=== PATIENT | male | born 1990 | race Caucasian/White ===

== ENCOUNTER 2017-09-22 23:04 | Emergency (ER) | payer OTHER ==
[2017-09-22 23:46] VITALS: BP 131/71
[2017-09-23] MEDS ORDERED: CYCLOBENZAPRINE HCL 10 MG TABLET PO ONE (00:30)
--- NOTE | 2017-09-23 00:32 | ER Document Report ---
ED General - General Mode of Arrival: Ambulatory Information source: Patient TRAVEL OUTSIDE OF THE [place] IN LAST 30 DAYS: No - General Chief Complaint: Bilat hip and back pain Stated Complaint: BACK/HIP PAIN Time Seen by Provider: 09/23/17 00:08 Notes: Patient is a 26 year old male with a history of degenerative disks presents to the emergency department complaining of bilateral hip and back pain secondary to a fall onset 2 weeks ago. Patient states that he slipped on water on a hard floor and fell on his bottom. Patient describes his hip pain as someone crushing them. Patient also complains of bilateral leg tingly sensations. Patient states that his hips were also swollen. Patient states that his pain is exacerbated by all kinds of movement. Patient states the pain worsened over time Patient states he was seen at [facility] 2 days ago for the same symptoms. (KEENAN MANSFIELD) States x-rays at [facility] 2 days ago were negative. Denies any bowel or bladder dysfunction, states that the tingling sensation is tingling that starts at his hips goes all the way down his legs and then goes away over a few minutes. Denies any foot drop. (CEASAR WALTON) Past Medical History - General Information source: Patient - Social History Smoking Status: Never Smoker Cigarette use (# per day): No Chew tobacco use (# tins/day): No Smoking Education Provided: No Frequency of alcohol use: None Drug Abuse: None Family History: Reviewed & Not Pertinent Review of Systems - Review of Systems Constitutional: No symptoms reported EENT: No symptoms reported Cardiovascular: No symptoms reported Respiratory: No symptoms reported Gastrointestinal: No symptoms reported Genitourinary: No symptoms reported Male Genitourinary: No symptoms reported Musculoskeletal: See HPI, Back pain Skin: No symptoms reported Hematologic/Lymphatic: No symptoms reported Neurological/Psychological: No symptoms reported -: Yes All other systems reviewed and negative Physical Exam - Vital signs Vitals: Temp Pulse Resp BP Pulse Ox 98.8 F 86 16 131/71 H 98 09/22/17 23:38 09/22/17 23:38 09/22/17 23:38 09/22/17 23:38 09/22/17 23:38 - Notes Notes: GENERAL: Alert, interacts well. No acute distress. HEAD: Normocephalic, atraumatic. EYES: Pupils equal, round, and reactive to light. Extraocular movements intact. ENT: Oral mucosa moist, tongue midline. NECK: Full range of motion. Supple. Trachea midline. LUNGS: Clear to auscultation bilaterally, no wheezes, rales, or rhonchi. No respiratory distress. HEART: Regular rate and rhythm. No murmurs, gallops, or rubs. ABDOMEN: Soft, non-tender. Non-distended. Bowel sounds present in all 4 quadrants. EXTREMITIES: Lumbar sacral joint tender to palpation. Moves all 4 extremities spontaneously. No edema, radial and dorsalis pedis pulses 2/4 bilaterally. No cyanosis. NEUROLOGICAL: Alert and oriented x3. Normal speech. Biceps and patellar DTRs 2+ bilaterally. PSYCH: Normal affect, normal mood. SKIN: Warm, dry, normal turgor. No rashes or lesions noted. (KEENAN MANSFIELD) Great toe raising strength bilaterally 5 out of 5. No saddle anesthesia. Able to stand and walk without difficulty. 5 out of 5 muscle strength in the bilateral lower extremities. Sensation intact bilateral lower extremities. ( CEASAR WALTON) Course - Re-evaluation Re-evalutation: 09/23/17 00:32 Normal neurologic exam, no evidence of cauda equina syndrome, able to stand without difficulty, sensation intact, consistent with sacral shear, recommended follow-up with chiropractics. Discharged home with Flexeril. (CEASAR WALTON) - Vital Signs Vital signs: Temp Pulse Resp BP Pulse Ox 98.8 F 86 16 131/71 H 98 09/22/17 23:38 09/22/17 23:38 09/22/17 23:38 09/22/17 23:38 09/22/17 23:38 Discharge - Discharge Clinical Impression: Sacral back pain, Sacroiliac joint dysfunction of left side, Pre-hypertension Condition: Stable Disposition: HOME, SELF-CARE Instructions: Stretching Exercises for the Back ([facility]) Prescriptions: Cyclobenzaprine HCl [Flexeril 10 mg Tablet] 10 mg PO TIDP PRN #15 tab PRN Reason: Forms: Elevated Blood Pressure Referrals: VIRGILIO FRYE MD [ACTIVE STAFF] - Follow up in 1 week Scribe Attestation: 09/23/17 01:24 I personally performed the services described in the documentation, reviewed and edited the documentation which was dictated to the scribe in my presence, and it accurately records my words and actions. (CEASAR WALTON) Scribe Documentation - Scribe Written by Darrion:: Darrion Oreilly, 09/23/2017 00:46 acting as scribe for :: Pennie
== END 2017-09-23 00:55 | disposition home or self-care (01) ==
LOC: ER 23:04
DX: R03.0 Elevated blood-pressure reading, without diagnosis of hypertension (principal); M53.3 Sacrococcygeal disorders, not elsewhere classified; M54.9 Dorsalgia, unspecified; M25.552 Pain in left hip; M25.551 Pain in right hip
CPT/HCPCS: 99283